=== PATIENT | female | born 1960 | race Caucasian/White ===

== ENCOUNTER 2019-11-11 14:56 | Emergency (ER) | payer BC, SELFPAY ==
[2019-11-11 15:18] VITALS: BP 163/94; PULSE 100; RESP 16; TEMP 37.3; O2SAT 96
--- NOTE | 2019-11-11 15:33 | ED.URI ---
HPI - URI/Sore Throat General Chief Complaint: Upper Respiratory Infection Stated Complaint: cough and pain from coughing Time Seen by Provider: 11/11/19 15:33 Source: patient and family History of Present Illness HPI Narrative: Patient presents with frontal sinus pressure patient complains of a tickling in the back of her throat and a dry nonproductive hacking cough. Patient denies any shortness of breath no chest pain. Patient is using a nasal spray for her seasonal allergies but is not had much help with that. Patient states she had the same symptoms several months ago and does not wish to go back to that dry hacking cough. MD elicited complaint: cough and nasal congestion Related Data Allergies Allergy/AdvReac Type Severity Reaction Status Date / Time Penicillins Allergy Itching Verified 11/11/19 15:34 Review of Systems Review of Systems: Narrative: CONSTITUTIONAL: Denies fever, chills, or sweats. EYES: Denies visual changes, redness, or discharge. ENT: Denies rhinorrhea, congestion, sore throat, or otalgia. CARDIOVASCULAR: Denies chest pain, palpitations, or edema. RESPIRATORY: Denies cough or dyspnea. GASTROINTESTINAL: Denies abdominal pain, nausea, vomiting, or diarrhea. GENITOURINARY: Denies dysuria or hematuria. SKIN: Denies rash or itching. MUSCULOSKELETAL: Denies back pain, joint pain, or myalgia. NEUROLOGIC: Denies headache, numbness, or weakness. PSYCHIATRIC: Denies anxiety or depression. PMFSH Comments At time of signature, agree with nursing past medical, surgical, social and family history. There is no relevant family history pertinent to the presenting complaint Exam Narrative: Exam Narrative: The patient is a well-developed, well-nourished in no acute distress. SKIN: Skin is warm and dry without erythema, swelling or exudate. There is good turgor. No tenting. HEAD: Atraumatic. Normocephalic. No temporal or scalp tenderness. EYES: Moist and bright. Sclera and conjunctivae normal. No discharge. PERRLA. Extraocular motions intact. Gross visual acuity intact. EARS: Pinna is normal shape and contour. Clear external auditory canals. TM pearly correa with good cone of light, no erythema or suppuration. Bilateral cerumen noted no gross hearing deficit. NOSE: pink, moist mucosa with good air movement. Clear rhinorrhea without nasal flaring. Septum midline. Moderate amount of frontal pressure and tenderness Mouth: moist mucous membranes. THROAT; mild erythema noted to posterior oropharynx with moderate postnasal drainage. Without exudate or ulceration.. Uvula midline. Normal movement of soft palate. NECK: Supple and nontender with full range of motion without discomfort. No meningeal signs. LUNGS: Equal and bilateral breath sounds without wheezes, rales or rhonchi. CHEST: The chest wall is without retractions or use of accessory muscles. HEART: Has a regular rate and rhythm without murmur, gallops, click or rub. ABDOMEN: Soft, nontender with positive active bowel sounds. No rebound tenderness. EXTREMITIES: Without cyanosis, clubbing or edema. Equal 2+ distal pulses and 2 second capillary refill noted. NEUROLOGIC: alert, active, . The patient moves all extremities with normal muscle strength. Normal muscle tone is noted. Normal coordination is noted. NO focal neurological findings noted. Course Vital Signs Vital signs: Vital Signs Temperature 37.3 C 11/11/19 15:18 Pulse Rate 100 11/11/19 15:18 Respiratory Rate 16 11/11/19 15:18 Blood Pressure 163/94 H 11/11/19 15:18 Pulse Oximetry 96 11/11/19 15:18 Temperature 37.3 C 11/11/19 15:18 Pulse Rate 100 11/11/19 15:18 Respiratory Rate 16 11/11/19 15:18 Blood Pressure 163/94 H 11/11/19 15:18 Pulse Oximetry 96 11/11/19 15:18 Please SHANE schedule a followup visit with your personal physician for further evaluation and treatment. Including recheck and discussion of your blood pressure. If your symptoms persist, change or worsen significantly before
== END 2019-11-11 15:50 | disposition home or self-care (01) ==
PROVIDERS: Emergency Provider Nurse Practitioner Family
DX: J01.10 Acute frontal sinusitis, unspecified (principal)
CPT/HCPCS: 99203; G0463

== ENCOUNTER 2022-02-24 13:50 | Emergency (ER) | payer BC, SELFPAY ==
[2022-02-24 14:00] VITALS: BP 103/45; PULSE 99; RESP 20; TEMP 36.2; O2SAT 100
--- NOTE | 2022-02-24 14:07 | ED.NAVMDI ---
HPI - Nausea/Vomiting/Diarrhea General Chief complaint: Nausea/Vomiting/Diarrhea Stated complaint: Weak/Vomiting Time Seen by Provider: 02/24/22 13:50 Source: patient, family and RN notes reviewed History of Present Illness HPI Narrative: Patient is a 61-year-old female who presents the urgent care with her sister with complaints of confusion, decreased appetite, falls, nausea, vomiting, diarrhea, generalized weakness. Sister states that they have been asking her for several weeks to be seen by a doctor or go to the emergency room and the patient refused. Patient has fallen several times over the last couple weeks and states that she has not eaten for several days. Patient does change her story several different times but apparently today she was allegedly found on the floor and is uncertain as how long she was there. Patient has had recent weight loss. Also reports of a cough for the last 2 months. Patient denies of any known fever. States that she had been incontinent prior to her arrival and is also reporting of some low back pain. Patient states that she is so weak that she can hardly walk . 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 Sister states that her has been concerned about her health for the last month or 2. Patient denies of any medical history. States that she is a current smoker. Denies of abdominal pain. Patient appears to be generalized weak, slightly confused, and dehydrated. Patient and sister aware of the plan of care. Some parts of this dictation were generated by voice recognition software and may contain typographical and/or grammatical inaccuracies. Related Data Allergies Allergy/AdvReac Type Severity Reaction Status Date / Time Penicillins Allergy Itching Verified 11/11/19 15:34 Review of Systems Review of Systems: CONSTITUTIONAL: Denies fever, chills, or sweats. EYES: Denies visual changes, redness, or discharge. ENT: Denies rhinorrhea, congestion, sore throat, or otalgia. CARDIOVASCULAR: Denies chest pain, palpitations, or edema. RESPIRATORY: Reports of left cough without dyspnea GASTROINTESTINAL: Reports of persistent nausea, vomiting and diarrhea without abdominal pain GENITOURINARY: Reports of incontinence SKIN: Denies rash or itching. MUSCULOSKELETAL: Reports of severe low back pain NEUROLOGIC: Reports of generalized weakness and reported confusion from family All other systems reviewed are negative, except as documented in HPI. PMFSH Comments At the time of my signature, I reviewed and agree with the nursing past medical, surgical, social, and family history. There is no relevant family history pertinent to the patient complaint. Exam Narrative: GENERAL: Appears disheveled, weak HEAD: normocephalic, atraumatic. EYES: PERRL. Sclera clear/white. Vision is grossly intact. EARS: External ears normal NOSE: External nose normal with no obvious nasal discharge, nares without redness, no rhinorrhea. THROAT: Mucous membranes dry NECK: Neck supple CARDIOVASCULAR: Regular rate and rhythm without murmurs, gallops, or rubs. RESPIRATORY: Diminished crackles throughout with wet cough noted on exam GASTROINTESTINAL: Abdomen soft, non-tender, nondistended. Bowel sounds are hypoactive. No guarding. SKIN: warm, intact with no suspicious lesions or rash, good texture and turgor. NEURO: awake, alert, and oriented to person, place and time. There were no obvious focal neurologic abnormalities. EXTREMITIES: No clubbing, cyanosis, or edema. BACK: Bilateral CVA tenderness Course Course Level of Care: Express Care Visit Vital Signs Vital signs: Vital Signs Temperature 97.2 F L 02/24/22 14:00 Pulse Rate 99 02/24/22 14:00 Respiratory Rate 20 02/24/22 14:00 Blood Pressure 103/45 L 02/24/22 14:00 Pulse Oximetry 100 02/24/22 14:00 Temperature 97.2 F L 02/24/22 14:00 Pulse Rate 99 02/24/22 14:00 Respiratory Rate 20 02/24/22 14:00 Blood Pressure 10
== END 2022-02-24 14:24 | disposition short-term general hospital (02) ==
LOC: EXPBETH 13:53
PROVIDERS: Emergency Provider Nurse Practitioner Family
DX: E86.0 Dehydration (principal); R53.1 Weakness; R41.0 Disorientation, unspecified
CPT/HCPCS: 99212; G0463